=== PATIENT | female | born 1960 | race Caucasian/White ===

== ENCOUNTER 2019-11-28 08:39 | Day surgery (SDC) | payer OTHER ==
[~2019-11-28 08:39] MED LIST: BACITRACIN 50000 UNIT VIAL ONE; CEFAZOLIN SODIUM 1 GM/VIAL ONE; FENTANYL CITR 250 MCG/5 ML ONE; GENTAMICIN SULF 80 MG/2ML INJ ONE; LIDOCAINE 2% MPF 5 ML VIAL ONE; MIDAZOLAM HCL 2 MG/2 ML INJ ONE; Mastisol Adhesive Liq ONE; NS 0.9% VIAL 0 ML ONE; ONDANSETRON 4 MG/2 ML VIAL ONE; ROCURONIUM 50 MG/5 ML VIAL IV ONE; Ringers Lactate 1,000 ML IV ONE; dexAMETHasone 10 MG/ML VIAL ONE; propofoL 200 MG/20 ML VIAL IV ONE
[2019-11-28 08:46] LABS: Urine Appearance CLEAR; Urine Bilirubin NEGATIVE (NEG); Urine Blood NEGATIVE (NEG); Urine Color YELLOW; Urine Glucose NEGATIVE (NEG); Urine Protein NEGATIVE (NEG); Urine Specific Gravity 1.015 (1.005-1.030); Urine Urobilinogen 0.2 mg/dL (0.2-1.0); Urine pH 7.5 (5.0-7.0)
[2019-11-28 08:50] LABS: Urine Microscopic Reflex NO UMIC
[2019-11-28] MEDS ORDERED: SCOPOLAMINE HYDROBROMIDE PATCH TD ONE (08:50)
[2019-11-28] MEDS ORDERED: Ringers Lactate 1,000 ML IV ONE (08:50)
[2019-11-28] MEDS ORDERED: CEFAZOLIN/SWI 1gm 0 GM/0 ML SYR ONE (08:51)
[2019-11-28 08:55] LABS: Absolute Lymphocytes (CBC) 2.3 K/uL (0.7-4.9); Basophils % 0.6 % (0-1.3); Hematocrit 41.6 % (36.0-45.0); Lymphocytes % 45.3 % (15.3-44.8); MPV 7.3 fL (7.6-11.3); RBC Red Blood Cell Count 4.47 M/uL (3.86-4.86)
--- NOTE | 2019-11-28 09:05 | RAD REPORT ---
EXAM DESCRIPTION: Isaiah Torrez And Fauzia (2 Views)11/28/2019 8:40 am CLINICAL HISTORY: Preop for breast implant removal COMPARISON: None FINDINGS: The lungs are hyperaerated The lungs appear clear of acute infiltrate. The heart is normal size IMPRESSION: Hyperaerated lungs may indicate COPD No acute abnormality displayed
[2019-11-28] MEDS: Ringers Lactate 1,000 ML IV ONE ×2 (09:35→11:21)
[2019-11-28] MEDS ORDERED: CLINDAMYCIN INJ 150 MG in NA CHLORIDE 0.9% 50 ML IV ONE (09:45)
[2019-11-28] MEDS ORDERED: CLINDAMYCIN 900MG/D5W 900 MG/50 ML IVPB IV ONE (10:13)
[2019-11-28] MEDS ORDERED: EPHEDRINE SULF 50 MG/ML VIAL ONE (11:00)
--- NOTE | 2019-11-28 11:24 | EKG ---
Test Date: 2019-11-28 Test Time: 08:17:35 Structural Engineering Project Manager: CINDY MEASUREMENT RESULTS: Intervals: Rate: 74 MN: 158 QRSD: 90 QT: 400 QTc: 444 [place]: P: 82 MN: 158 QRS: 18 T: 57 INTERPRETIVE STATEMENTS: Normal sinus rhythm Normal ECG No previous ECG available for comparison Electronically Signed On 11-28-19 11:23:19 TRUST OFFICER by Jose Harper
[2019-11-28] MEDS ORDERED: Phenylephrine HCl 10 MG/ML 1 ML VIAL ONE (12:38)
[2019-11-28] MEDS ORDERED: FENTANYL CITR 100 MCG/2 ML ONE (13:10)
[2019-11-28] MEDS ORDERED: KETOROLAC 30 MG/ML INJ ONE (14:05)
[2019-11-28] MEDS ORDERED: DIPHENHYDRAMINE 50 MG/ML VIAL ONE (14:12)
[2019-11-28] MEDS ORDERED: ONDANSETRON 4 MG/2 ML VIAL ONE (15:03)
[2019-11-28] MEDS: HYDROMORPHONE HCL 1 MG/ML INJ ONE ×2 (15:05→15:10)
[2019-11-28] MEDS ORDERED: CODEINE 30MG/APAP 300MG TAB ONE (17:06)
[2019-11-28 17:12] VITALS: BP 107/55; TEMP 97.9; O2SAT 99
--- NOTE | 2019-11-28 23:31 | OP ---
Surgeon: Tay Mehta MD Machine Clerical Verifier: Gigi. 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 Postoperative Diagnosis: Capsule contracture of right breast status post augmentation. Anesthesia: General. Procedure Performed: After satisfactory induction of general anesthesia, the chest was prepped with DuraPrep and dry sterile drapes applied in the usual manner. 38 template was used to outline the rig ht and left areolas, then a scalpel was used to make a transverse incision and curvilinear inferior i ncision. Intervening skin was de-epithelialized with dermabrader and EpiCut. The flap was then elev ated through the transverse cephalad incision toward the sternum, clavicle, and anterior axillary clair e to approximately 1 cm thick. Flap elevation was completed, then lateral incisions were made, and d e-epithelialized tissue was formed with a cone, used 2-0 PDS suture through the base of the cone. Th e right breast straps were elevated at 12 o'clock, 1:30, and 3 o'clock positions. The straps were ap proximately 1 cm wide and about 20 cm long. The straps were then woven in and out of the pectoralis major muscle back the base of cone, sewn themselves with 2-0 PDS, this was done for the 12 o'clock an d 130 straps. The 3 o'clock strap was sewn over the sternum at the 3 o'clock position with 2-Ethibon d. A mirror-image was done on the opposite side. The wound was carefully stapled shut. The patient was sat up, sites for asymmetry were examined. Dog-ears were marked out. Excess tissues to be rese cted as marked. The patient was placed supine then and then the excessive tissue was resected. The wound irrigated with antibiotic solution and then a 10 MIRIAM was brought out the axilla and sewn in plac e with 2-0 silk and the wound was closed in layers with 3-0 Vicryl subcu, 3-0 PDS, running subcuticul ar lateral to medial and medial to lateral. Prior to closure, breast implants have been removed, the y were silicone gel textured. The right side was ruptured, left side was not. There was 310 g on th e right and 320 g on the left. The patient was then sat up, site for new nipple-areolar complex was marked out. The tissue cored out. The nipple was delivered after cut off the 38 mm template and italo sed in layers of 4-0 PDS deep dermis, 4-0 PDS running subcuticular. Dressings consisted of tincture of benzoin, Steri-Strips, 5 x 5s, fluffs, and Antonino wrap. The patient tolerated the procedure well and returned to recovery. Amount of tissue removed from the right breast was 18 g, left breast was 20 g . HEATHER/MISTY Voice ID: [id number] Report ID: [id number]
== END 2019-11-28 17:50 | disposition home or self-care (01) ==
LOC: OR 08:39
PROVIDERS: ATTEND Specialist
PROC: 0HPU0JZ Removal of Synthetic Substitute from Left Breast, Open Approach (ICD-10-PCS; 2019-11-28)
PROC: 0HPT0JZ Removal of Synthetic Substitute from Right Breast, Open Approach (ICD-10-PCS; 2019-11-28)
PROC: 0H0V0ZZ Alteration of Bilateral Breast, Open Approach (ICD-10-PCS; principal; 2019-11-28 09:00)
DX: T85.44XA Capsular contracture of breast implant, initial encounter (principal); N64.81 Ptosis of breast; K21.9 Gastro-esophageal reflux disease without esophagitis; Z88.1 Allergy status to other antibiotic agents; Z88.2 Allergy status to sulfonamides; Z88.3 Allergy status to other anti-infective agents; Z88.8 Allergy status to other drugs, medicaments and biological substances
CPT/HCPCS: 93005; 85025; 36415; 88305; 81003; 71046; 19316; 19328; 19330; J2704; J1200; J2370; J1580; J2250; J3010 ×2; J1100; J1170; J7120 ×3; J2405 ×2; J0690